=== PATIENT | female | born 1955 | race Two or more races ===

== ENCOUNTER 2017-09-11 02:41 | Inpatient (IN) | payer MEDICARE, OTHER ==
[~2017-09-11] VITALS: Ht 160 cm; Wt 98.0 kg
[2017-09-11] MEDS ORDERED: LORAZEPAM 0.5 MG TABLET PO ONE (03:15)
[2017-09-11] MEDS ORDERED: LORAZEPAM 0.5 MG TABLET ONE (03:24)
[2017-09-11] MEDS ORDERED: DIVA250T4 PO (03:52)
[2017-09-11] MEDS ORDERED: DIVA500T2 PO (03:52)
[2017-09-11] MEDS ORDERED: RISP1TAB7 PO (04:24)
[2017-09-11] MEDS ORDERED: AMLODIPINE (04:41)
[2017-09-11] MEDS ORDERED: BENTROPINE PO (04:44)
--- NOTE | 2017-09-11 04:45 | NUR ---
PT IN BED RESTING QUIETLY WITH EYES CLOSED. NO SIGNS OF DISTRESSED WITNESS BY NURSE OR EXPRESSED BY PT.
[2017-09-11] MEDS ORDERED: HYDROCHLOROTHIAZIDE PO (04:46)
[2017-09-11] MEDS ORDERED: SIMVASTATIN PO (04:47)
[2017-09-11] MEDS ORDERED: TRAMADOL PO (04:48)
[2017-09-11] MEDS ORDERED: ZOLPIDEM (04:49)
--- NOTE | 2017-09-11 05:30 | NUR ---
Pt. admitted to MHU, under care of Dr. ROSAS/DR. GLASS Belongs List completed
[2017-09-11] MEDS ORDERED: MAG HYDROX/AL HYDROX/SIMETH 30 ML LIQUID UDC PO PRN (06:00)
[2017-09-11] MEDS ORDERED: MAGNESIUM HYDROXIDE 30 ML LIQUID UDC PO PRN (06:00)
--- NOTE | 2017-09-11 06:00 | NUR ---
AT APPROX 0530 ADMITTED 62 YEARS OLD FEMALE TO [facility] MHU ON A 5150 HOLD FOR DTS AND DTO. HOLD STARTED ON 09/09/2017 AT 1419 AND WILL END ON 09/12/17 AT 1419. PER HOLD, PATIENT HAS NOT BEEN SLEEPING OR EATING, CALLING PARAMEDICS, PULLING OUT DRAWERS IN MOTHER'S HOME, PULLING OUT SHARP OBJETS IN A THREATENING MANNER. PARANOID DELUSIONAL THINKING THAT FAMILY IS TRYING TO KILL HER MOTHER. PATIENT STATED THAT SHE LIVES AT HOME AND WHEN TO [facility] ER WHERE SHE WAS MEDICALLY CLEARED FOR ADMISSION TO MHU. SHE FIRST ENTERED [facility] ER. PATIENT NOTED A/O X 3, SHE WAS NOTED WITH FLIGHT OF IDEAS, POOR INSIGHT POOR JUDGMENT TO THE REASON FOR HER ADMISSION TO MHU. SHE WAS NOTED WITH FLIGHT OF IDEAS, TANGENTAL, SHE STATED, "THAT IS NOT TRUE, ASK MY LITTLE SISTER, MY MOM IS THE ONE THAT GETS IN MY WAY". SHE DENIES SI, AH/VH AND SHE WAS ABLE TO CONTRACT FOR SAFETY. PT ABLE TO AMBULATE WITH STEADY GAIT. SHE WAS COMPLIANT WITH ADMISSION PROCESS. SKIN WARM MOIST AND INTACT. PATIENT WILL BE UNDER THE CARE OF DR. ROSAS. WILL CONTINUE TO MONITOR.
[2017-09-11 07:30] VITALS: BP 154/75
[2017-09-11] MEDS: CLONAZEPAM 0.5 MG TABLET PO PRN (10:08)
[2017-09-11 14:45] VITALS: BP 140/70
[2017-09-11] MEDS: risperiDONE 0.5 MG TABLET PO SCH ×2 (15:12→20:51)
[2017-09-11] MEDS: DIVALPROEX 250 MG TABLET.DR PO SCH ×2 (15:12→17:14)
[2017-09-11] MEDS: BENZTROPINE MESYLATE 0.5 MG TABLET PO SCH ×2 (15:12→17:14)
[2017-09-11] MEDS: AMLODIPINE 5 MG TABLET PO SCH (15:49)
[2017-09-11 15:59] LABS: BASOPHILS # (AUTO) 0.1 K/uL (0.0-8.0); BASOPHILS % (AUTO) 1.1 % (0.0-2.0); CREATININE 0.6 mg/dL (0.6-1.3); EOSINOPHILS # (AUTO) 0.1 K/uL (0.0-0.7); EOSINOPHILS % (AUTO) 1.9 % (0.0-7.0); HEMATOCRIT 41.9 % (31.2-41.9); HEMOGLOBIN 13.7 g/dL (10.9-14.3); LYMPHOCYTES # (AUTO) 1.9 K/uL (20.0-40.0); LYMPHOCYTES % (AUTO) 29.2 % (20.5-51.5); MEAN CORPUSCULAR HEMOGLOBIN 29.8 uug (24.7-32.8); MEAN CORPUSCULAR HGB CONC 33 g/dL (32.3-35.6); MEAN CORPUSCULAR VOLUME 90.7 fL (75.5-95.3); MONOCYTES # (AUTO) 0.7 K/uL (2.0-10.0); MONOCYTES % (AUTO) 10.6 % (0.0-11.0); NEUTROPHILS # (AUTO) 3.6 K/uL (1.8-8.9); NEUTROPHILS % (AUTO) 57.2 % (38.5-71.5); PLATELET COUNT (AUTO) 264 K/uL (179-408); RED BLOOD CELL COUNT(AUTO) 4.62 MIL/uL (3.63-4.92); WHITE BLOOD COUNT (AUTO) 6.3 K/uL (3.8-11.8)
[2017-09-11] MEDS: SIMVASTATIN 20 MG TABLET PO SCH (20:51)
--- NOTE | 2017-09-11 21:00 | NUR ---
RECEIVED PATIENT IN THE HALLWAY, SHE IS NOTED A/O X 3, SHE IS ABLE TO AMBULATE WITH A STEADY GAIT WITH THE AID OF A FWW. PATIENT NOTED DELUSIONAL, FLIGHT OF IDEAS, TANGENTIAL SPEECH, POOR INSIGHT AND JUDGMENT TO THE REASON FOR HER ADMISSION TO MHU. HOWEVER, PATIENT DENIES SI/HI AT THIS TIME. SHE IS ABLE TO COMPLY WITH QHS MEDICATION AND ABLE TO MAKE HER NEEDS KNOWN. SAFETY WAS EMPHASIS. WILL CONTINUE TO MONITOR CLOSELY.
[2017-09-11 21:42] VITALS: BP 112/62
[2017-09-12 07:30] VITALS: BP 150/76
[2017-09-12] MEDS: BENZTROPINE MESYLATE 0.5 MG TABLET PO SCH ×3 (08:07→17:00)
[2017-09-12] MEDS: risperiDONE 0.5 MG TABLET PO SCH ×2 (08:07→20:17)
[2017-09-12] MEDS: HYDROCHLOROTHIAZIDE 12.5 MG CAPSULE PO SCH (08:07)
[2017-09-12] MEDS: AMLODIPINE 5 MG TABLET PO SCH (08:07)
[2017-09-12] MEDS: DIVALPROEX 250 MG TABLET.DR PO SCH ×4 (08:07→17:00)
[2017-09-12] MEDS: LIDOCAINE 5% PATCH TD SCH (08:08)
--- NOTE | 2017-09-12 12:19 | NUR ---
Initial DC Plan: Patient currently lives home alone [[address] [place] [address]; [phone]] and receives support from her family and caregiver. SW will follow up with MD, patient, and patient's conservator Jluis [[phone]] to discuss most appropriate discharge plans. SW will form a safe and proper discharge.
--- NOTE | 2017-09-12 12:30 | NUR ---
Firearms Reporting: OLI submitted Mental Health Report to [facility] 09/12.
[2017-09-12 12:43] LABS: *BILIRUBIN,URIN NEGATIVE (NEGATIVE); *BLOOD, URINE NEGATIVE (NEGATIVE); *CLARITY,URINE CLEAR (CLEAR); *COLOR,URINE YELLOW (YELLOW); *KETONES,URINE NEGATIVE (NEGATIVE); *PROTEIN,URINE TRACE (NEGATIVE); *UROBILINOGEN,URINE 0.2 E.U./dl (NORMAL); LEUKOCYTE ESTERASE ,URINE NEGATIVE (NEGATIVE); NITRITE, URINE NEGATIVE (NEGATIVE); UGLUCOSE NEGATIVE (NEGATIVE)
[2017-09-12 13:05] LABS: RBC,URINE 0-3 /HPF (0-3)
[2017-09-12 13:06] LABS: BACTERIA,URINE MOD /HPF (NONE SEEN); SQUAMOUS EPITHELIAL CELL,UR MANY /HPF (NONE SEEN)
[2017-09-12 17:09] VITALS: BP 113/70
[2017-09-12 20:16] VITALS: BP 133/67
[2017-09-12] MEDS: SIMVASTATIN 20 MG TABLET PO SCH (20:17)
[2017-09-12] MEDS: TEMAZEPAM 7.5 MG CAPSULE PO PRN (22:09)
--- NOTE | 2017-09-12 22:10 | NUR ---
GPS: PATIENT C/O INSOMNIA. RESTORIL 7.5 MG PO GIVEN PER PATIENT REQUESTED.
--- NOTE | 2017-09-12 23:10 | NUR ---
GPS: PATIENT IS SLEEPING QUIETLY. PRN EFFECTIVE FOR SLEEP.
[2017-09-13] MEDS: ACETAMINOPHEN 325 MG TABLET PO PRN (02:47)
--- NOTE | 2017-09-13 06:56 | NUR ---
GPS: REMAIN CALM AND COOPERATIVE WITH MEDICATIONS AND CARE. SLEPT 6:30 HRS THROUGH THE NIGHT.NO BEHAVIOR PROBLEM NOTED CONTINUE PLAN OF CARE.
[2017-09-13 07:30] VITALS: BP 143/76
[2017-09-13] MEDS: LIDOCAINE 5% PATCH TD SCH (09:11)
[2017-09-13] MEDS: DIVALPROEX 250 MG TABLET.DR PO SCH ×3 (09:11→17:13)
[2017-09-13] MEDS: risperiDONE 0.5 MG TABLET PO SCH ×2 (09:11→17:13)
[2017-09-13] MEDS: HYDROCHLOROTHIAZIDE 12.5 MG CAPSULE PO SCH (09:11)
[2017-09-13] MEDS: BENZTROPINE MESYLATE 0.5 MG TABLET PO SCH ×2 (09:11→17:13)
[2017-09-13] MEDS: AMLODIPINE 5 MG TABLET PO SCH (09:12)
--- NOTE | 2017-09-13 12:03 | NUR ---
patient up and about in dayroom up in chair with feet raised inter acting with select peers . lidocaine patch to lower back and med compliant less delusional today continue to monitor for safety.
[2017-09-13 16:32] VITALS: BP 122/72
[2017-09-13] MEDS: SIMVASTATIN 20 MG TABLET PO SCH (20:19)
[2017-09-13 21:49] VITALS: BP 121/64
[2017-09-13] MEDS: TEMAZEPAM 7.5 MG CAPSULE PO PRN (21:58)
--- NOTE | 2017-09-13 23:01 | NUR ---
Requested for Restoril at 2200. Cooperative with care and compliant with meds. Will continue to monitor.
--- NOTE | 2017-09-14 07:00 | NUR ---
Pt sitting in the activity room watching TV. Took a shower early today and expressed feeling good and fresh. Expressed appreciation for care rendered. Slept well through the night. Due meds given. Frequent checks done. Endorsed accordingly.
[2017-09-14 07:30] VITALS: BP 142/76
[2017-09-14] MEDS: LIDOCAINE 5% PATCH TD SCH ×2 (09:59→10:19)
[2017-09-14] MEDS: BENZTROPINE MESYLATE 0.5 MG TABLET PO SCH ×2 (10:00→17:48)
[2017-09-14] MEDS: AMLODIPINE 5 MG TABLET PO SCH (10:00)
[2017-09-14] MEDS: HYDROCHLOROTHIAZIDE 12.5 MG CAPSULE PO SCH (10:01)
[2017-09-14] MEDS: risperiDONE 0.5 MG TABLET PO SCH ×3 (10:01→17:48)
[2017-09-14] MEDS: DIVALPROEX 250 MG TABLET.DR PO SCH ×3 (10:01→17:48)
--- NOTE | 2017-09-14 13:55 | NUR ---
patient very needy and delusional ' IM ' pt visible in day room at times c/o dizziness informed to lay down when feeling that way\, patientvery hyper verbal all shift, continue to monitor for safety
[2017-09-14 15:56] VITALS: BP 142/77
[2017-09-14] MEDS: TEMAZEPAM 7.5 MG CAPSULE PO PRN ×2 (20:35→23:50)
[2017-09-14] MEDS: SIMVASTATIN 20 MG TABLET PO SCH (20:35)
[2017-09-14 20:38] VITALS: BP 160/76
--- NOTE | 2017-09-14 22:17 | NUR ---
NSG/GPS PATIENT VISIBLE ON THE UNIT, PACING HALLWAY, INTERACTING WITH STAFF AND PEERS AT TIMES OBSERVED TO BE INAPPROPRIATE. INTRUSIVE, LOUD, DEMANDING FROM STAFF SEVERAL THINGS AT ONCE, STATING THIS IS A FIVE STAR HOTEL, BECAME ANGRY WHEN REDIRECTED TO ROOM. REFUSED TO TAKE PRN FOR INSOMNIA FROM NURSE ASSIGNED TO HER CARE. REQUESTED ANOTHER NURSE. WILL CONTINUE TO MONITOR FOR SAFETY WELL OFFER MEDICATION PRN.
[2017-09-15] MEDS: ACETAMINOPHEN 325 MG TABLET PO PRN (04:48)
[2017-09-15 07:30] VITALS: BP 137/79
[2017-09-15] MEDS: CLONAZEPAM 0.5 MG TABLET PO PRN (09:23)
[2017-09-15] MEDS: risperiDONE 0.5 MG TABLET PO SCH ×3 (09:23→17:16)
[2017-09-15] MEDS: BENZTROPINE MESYLATE 0.5 MG TABLET PO SCH ×2 (09:23→17:16)
[2017-09-15] MEDS: DIVALPROEX 250 MG TABLET.DR PO SCH ×3 (09:23→17:16)
[2017-09-15] MEDS: AMLODIPINE 5 MG TABLET PO SCH (09:24)
[2017-09-15] MEDS: HYDROCHLOROTHIAZIDE 12.5 MG CAPSULE PO SCH (09:24)
[2017-09-15 16:04] VITALS: BP 121/61
--- NOTE | 2017-09-15 18:03 | NUR ---
PATIENT VERY MANIC AND VISIBLE ON UNIT A ELECTRONIC INSTALLER FOR ALL PATIENTS, NEEDS FREQUENT REDIRECTION [place] 0.5 TIMES ONE FOR ESCALATING IN AM MONITOR FOR SAFETY
[2017-09-15 20:00] VITALS: BP 143/73
[2017-09-15] MEDS: SIMVASTATIN 20 MG TABLET PO SCH (21:00)
--- NOTE | 2017-09-15 21:00 | NUR ---
RECEIVED PATIENT IN THE DAY ROOM, SHE IS NOTED A/O X 3. SHE IS ABLE TO AMBULATE WITH A FRONT WHEEL WALKER WITH STEADY GAIT AND ABLE TO MAKE HER NEEDS KNOWN. PATIENT NOTED GUARDED, MAKING NO EYE CONTACT WHEN APPROACHED. SHE DENIES PAIN AT THIS TIME. REFUSED ZOCAR QHS. SHE STATED, (WITHOUT MAKING EYE CONTACT WITH NURSE) "I ALREADY TOOK ALL MY MEDICATION. I DON'T NEED ANYTHING ELSE. I WILL TELL YOU IF I NEED PAIN MEDICATION OR A SLEEPING PILL." SAFETY EMPHASIS. WILL CONTINUE TO MONITOR CLOSELY.
[2017-09-16 07:30] VITALS: BP 144/62
[2017-09-16] MEDS: CLONAZEPAM 0.5 MG TABLET PO PRN (08:19)
[2017-09-16] MEDS: AMLODIPINE 5 MG TABLET PO SCH (08:57)
[2017-09-16] MEDS: BENZTROPINE MESYLATE 0.5 MG TABLET PO SCH ×2 (08:57→16:48)
[2017-09-16] MEDS: DIVALPROEX 250 MG TABLET.DR PO SCH ×3 (08:57→16:48)
[2017-09-16] MEDS: risperiDONE 0.5 MG TABLET PO SCH (08:58)
[2017-09-16] MEDS: HYDROCHLOROTHIAZIDE 12.5 MG CAPSULE PO SCH (08:58)
[2017-09-16] MEDS: LIDOCAINE 5% PATCH TD SCH (11:18)
[2017-09-16 15:35] VITALS: BP 139/66
[2017-09-16] MEDS: risperiDONE 1 MG TABLET PO SCH (16:48)
[2017-09-16] MEDS ORDERED: risperiDONE 0.5 MG TABLET PO SCH (17:00)
[2017-09-16 20:00] VITALS: BP 132/66
[2017-09-16] MEDS: SIMVASTATIN 20 MG TABLET PO SCH (21:30)
--- NOTE | 2017-09-16 21:30 | NUR ---
RECEIVED PATIENT IN THE DAY ROOM, SHE IS NOTED A/O X 3. SHE IS ABLE TO AMBULATE WITH A STEADY GAIT WITH A FRONT WHEEL WALKER. SHE IS ABLE TO MAKE HER NEEDS KNOWN. PATIENT NOTED GUARDED, DENIES SI/HI VH/AH. SHE DENIES PAIN AT THIS TIME. SHE WAS ABLE TO COMPLY WITH MEDICATION REGIMENT." SAFETY WAS EMPHASIS. WILL CONTINUE TO MONITOR CLOSELY.
--- NOTE | 2017-09-17 07:15 | NUR ---
PATIENT SLEPT FOR APPROX 7.00 HRS THROUGH THE NIGHT. NO AGGRESSIVE BX NOTED. DENIES SI/HI SHE IS ABLE TO CFS. SOME DELUSIONS STILL PRESENT
[2017-09-17 07:30] VITALS: BP 139/79
[2017-09-17] MEDS: CLONAZEPAM 0.5 MG TABLET PO PRN ×3 (08:04→20:19)
[2017-09-17] MEDS: DIVALPROEX 250 MG TABLET.DR PO SCH ×3 (08:49→16:44)
[2017-09-17] MEDS: risperiDONE 1 MG TABLET PO SCH ×2 (08:49→16:44)
[2017-09-17] MEDS: BENZTROPINE MESYLATE 0.5 MG TABLET PO SCH ×2 (08:49→16:44)
[2017-09-17] MEDS: HYDROCHLOROTHIAZIDE 12.5 MG CAPSULE PO SCH (08:49)
[2017-09-17] MEDS: AMLODIPINE 5 MG TABLET PO SCH (08:49)
[2017-09-17] MEDS: LIDOCAINE 5% PATCH TD SCH (08:50)
[2017-09-17 16:09] VITALS: BP 149/69
[2017-09-17 20:16] VITALS: BP 158/81
[2017-09-17] MEDS: SIMVASTATIN 20 MG TABLET PO SCH (20:19)
--- NOTE | 2017-09-18 06:42 | NUR ---
RECEIVED Pt IN THE DAY ROOM INTERACTING WITH OTHER Pts. A+Ox2 TO NAME AND PLACE, POOR INSIGHT INTO WHAT BROUGHT HER TO THE HOSPITAL. Pt PRESENTS DELUSIONAL, SHE INTRODUCED ANOTHER Pt HER MOM, AND ANOTHER HER SISTER. Pt IS HYPERVERBAL WITH PRESSURED SPEECH, IS ANXIOUS AND ATTENTION-SEEKING. Pt IS CIRCUMSTANTIAL IN THOUGHT PROCESS AND EXHIBITS [employer]SE [employer]OCIATIONS. DENIES SI/HI, CFS. DENIES AH/VH, BUT APPEARS INTERNALLY PREOCCUPIED. COMPLIANT WITH MEDICATIONS, COOPERATIVE WITH STAFF DIRECTION. VS STABLE, DENIES PAIN. IN NO ACUTE PHYSICAL DISTRESS. Pt SHOWERED THIS MORNING, SLEPT 5 HOURS.
[2017-09-18 07:30] VITALS: BP 114/72
[2017-09-18] MEDS: BENZTROPINE MESYLATE 0.5 MG TABLET PO SCH ×2 (08:25→16:17)
[2017-09-18] MEDS: risperiDONE 1 MG TABLET PO SCH ×2 (08:25→16:17)
[2017-09-18] MEDS: AMLODIPINE 5 MG TABLET PO SCH (08:25)
[2017-09-18] MEDS: HYDROCHLOROTHIAZIDE 12.5 MG CAPSULE PO SCH (08:25)
[2017-09-18] MEDS: DIVALPROEX 250 MG TABLET.DR PO SCH ×3 (08:25→16:17)
[2017-09-18] MEDS: LIDOCAINE 5% PATCH TD SCH (08:26)
[2017-09-18 15:21] VITALS: BP 125/75
[2017-09-18 20:21] VITALS: BP 124/66
[2017-09-18] MEDS: SIMVASTATIN 20 MG TABLET PO SCH (20:23)
--- NOTE | 2017-09-18 21:00 | NUR ---
RECEIVED PATIENT IN THE HALLWAY. SHE IS ABLE TO AMBULATE WITH STEADY GAIT WITH THE AID OF A FWW. PT NOTED A/O X2 AND ABLE TO MAKE HER NEEDS KNOWN. PT NOTED EASILY IRRITABLE, GUARDER. POOR INSIGHT AND JUDGMENT TO THE REASON FOR HER ADMISSION. SHE STATED, "I AM NOT CRAZY". "I AM DOING FINE. EVERYTHING IS OKAY WITH ME". PATIENT IS COMPLIANT WITH [facility] MEDICATION REGIMENT AT THIS TIME. SAFETY EMPHASIS. WILL CONTINUE TO MONITOR CLOSELY.
--- NOTE | 2017-09-18 22:00 | NUR ---
Patient refused to have her Lidocaine patch taken off. mutiple redirection given, however, ineffective. she stated, "the other nurse put the patch at 4 in the afternoon". "Stay away from me, don't bother me". will continue to monitor closely.
[2017-09-19] MEDS: ACETAMINOPHEN 325 MG TABLET PO PRN (04:37)
--- NOTE | 2017-09-19 04:43 | NUR ---
Patient approached the nursing station requesting a pain medication for headaches. Tylenol 650mg PO PRN was given. pt was asked to let this typewriter tester remove the Lidocaine patch from her back; multiple redirection given, however, she became belligerent, she said "Fuck you", "I asked you for pain medication for my headaches, but you want to take my patch off." "fuck you." patient then went back to her room. will continue to monitor closely.
--- NOTE | 2017-09-19 06:20 | NUR ---
PATIENT SLEPT FOR APPROX 7.30HRS THROUGH THE NIGHT. SHE CONTINUE WITH LABILE BX. EASILY IRRITABLE, UNCOOPERATIVE REFUSING TO REMOVE HER LIDOCAINE PATCH. WILL CONTINUE TO MONITOR CLOSELY.
[2017-09-19 08:00] VITALS: BP 146/77
[2017-09-19] MEDS: LIDOCAINE 5% PATCH TD SCH (09:00)
[2017-09-19] MEDS: risperiDONE 1 MG TABLET PO SCH ×2 (09:44→16:59)
[2017-09-19] MEDS: HYDROCHLOROTHIAZIDE 12.5 MG CAPSULE PO SCH (09:44)
[2017-09-19] MEDS: DIVALPROEX 250 MG TABLET.DR PO SCH ×3 (09:44→16:59)
[2017-09-19] MEDS: BENZTROPINE MESYLATE 0.5 MG TABLET PO SCH ×2 (09:45→16:59)
[2017-09-19] MEDS: AMLODIPINE 5 MG TABLET PO SCH (09:50)
--- NOTE | 2017-09-19 12:47 | NUR ---
patient remains hyperverbal on unit oatient still grandioseand hyperactive no behavior problems continue to monitor for safety
[2017-09-19 16:00] VITALS: BP 152/70
[2017-09-19 20:00] VITALS: BP 130/60
--- NOTE | 2017-09-19 20:30 | NUR ---
RECEIVED PATIENT IN THE DAY ROOM, SHE WAS NOTED A/O X 2 ABLE TO MAKE HER NEEDS KNOWN AND ABLE TO AMBULATED WITH STEADY GAIT. PATIENT ANSWER QUESTION WITH ONE OR TWO WORDS, EASILY IRRITABLE, DOES NOT MAKE EYE CONTACT WITH THIS CAR USHER, SUSPICIOUS, GUARDED, LABILE, EVASIVE, GRANDIOUS AFFECT, SHE STATED, "I AM OKAY, I DO NOT NEED YOU, I AM OKAY." AND SHE WALKED AWAY. SAFETY EMPHASIS. WILL CONTINUE TO MONITOR CLOSELY.
[2017-09-19] MEDS: SIMVASTATIN 20 MG TABLET PO SCH (21:00)
--- NOTE | 2017-09-19 21:30 | NUR ---
PATIENT REFUSED ZOCAR QHS. SHE STARED, "I DO NOT NEED IT TODAY". MUTIPLE REDIRECTION GIVEN. YET INEFFECTIVE.
--- NOTE | 2017-09-20 06:36 | NUR ---
PATIENT SLEPT FOR APPROX 6.30HRS THROUGH THE NIGHT. SHE REFUSED SYNTHROID QAM. CONTINUE LABILE MOOD, IRRITABLE, GRANDIOUS AFFECT. WILL CONTINUE TO MONITOR.
[2017-09-20] MEDS ORDERED: LEVOTHYROXINE SODIUM 75 MCG TABLET PO SCH (07:00)
[2017-09-20 07:30] VITALS: BP 116/55
--- NOTE | 2017-09-20 09:00 | NUR ---
RECEIVED Pt IN THE DAY ROOM, A/O X 2 ABLE TO MAKE HER NEEDS KNOWN, AMBULATES WITH FWW AND WITH STEADY GAIT. COMPLIANT WITH MEDS AND CARE STAFF, NO HOSTILE OR ANGRY BEHAVIOR NOTED. Pt IS WELL AWARE THAT SHE WILL BE DISCHARGING TO HOME TODAY.
[2017-09-20] MEDS: HYDROCHLOROTHIAZIDE 12.5 MG CAPSULE PO SCH (09:19)
[2017-09-20 09:20] VITALS: BP 116/55
[2017-09-20] MEDS: risperiDONE 1 MG TABLET PO SCH (09:20)
[2017-09-20] MEDS: AMLODIPINE 5 MG TABLET PO SCH (09:20)
[2017-09-20] MEDS: BENZTROPINE MESYLATE 0.5 MG TABLET PO SCH (09:20)
[2017-09-20] MEDS: DIVALPROEX 250 MG TABLET.DR PO SCH (09:20)
[2017-09-20] MEDS: LIDOCAINE 5% PATCH TD SCH (09:28)
--- NOTE | 2017-09-20 10:04 | NUR ---
DC Note: Patient will be discharged home [[address] [place] [address]; [phone]] via taxi. Patient is alert and oriented x3 and denies SI and HI. She is aware and agreeable to discharge plans. OLI spoke with patient's conservator Jluis Tesfaye [[phone]] who is aware and agreeable to discharge plans and stated patient will be able to get into her home. OLI notified patient's social professionals Shair Campbell from [facility] [[phone]] of patient's discharge. LOI left a voicemail for patient's caregiver Medina [[phone]] with details of discharge plans. Patient will follow up with her psychiatrist Dr. Do Simpson [[address] [place] [address]. [place], [place]; [phone]] and cleaning machine operator Dr. Jarrell Gruber [[address] [place] [address], [place] [address]; ]. OLI connected patient to an intensive outpatient program for additional mental health services. Patient will present at [facility] for intake on September 23 at 10am. OLI spoke with Nadya from the program who stated the program's cdl b driver Dharmesh will picker tender helper patient around 8am on Saturday to transport her. Patient was provided with additional outpatient mental health resources to [facility] Crisis [facility] , Cynthia Grant , and the National Suicide Prevention Lifeline .
--- NOTE | 2017-09-20 12:00 | NUR ---
Pt HAS BEEN DISCHARGED HOME VIA TAXI. ALL BELONGINGS, PRESCRIPTIONS, AND DISCHARGE INFORMATION WERE WITH Pt AT TIME OF DISCHARGE.
== END 2017-09-20 11:30 | disposition home or self-care (01) | DRG 885 ==
LOC: ER 02:43 → GPS 05:09
PROVIDERS: ADMIT Psychiatry & Neurology Psychiatry; ATTEND Nurse Practitioner Acute Care
DX: F29 Unspecified psychosis not due to a substance or known physiological condition (principal); F31.64 Bipolar disorder, current episode mixed, severe, with psychotic features; E78.5 Hyperlipidemia, unspecified; G89.29 Other chronic pain; M54.5 Low back pain; E03.9 Hypothyroidism, unspecified; M48.00 Spinal stenosis, site unspecified; I10 Essential (primary) hypertension; Z79.899 Other long term (current) drug therapy
CPT/HCPCS: 36415; 71045; 80164; 84443; 85025; 87086; 93005; A4663; J3490